=== PATIENT | female | born 1950 | race African-American/Black ===

== ENCOUNTER 2025-02-17 18:23 | Emergency (ER) | payer MEDICARE ==
[2025-02-17] MEDS ORDERED: Dexamethasone 10 MG/ML VIAL ONE (19:55)
== END 2025-02-17 19:58 | disposition home or self-care (01) ==
LOC: CSHERS 18:23
DX: H60.91 Unspecified otitis externa, right ear (principal)
CPT/HCPCS: 99282; J1100